=== PATIENT | male | born 1990 | race Caucasian/White ===

== ENCOUNTER 2024-05-18 03:50 | Emergency (ER) | payer SELFPAY ==
[~2024-05-18] VITALS: Ht 175.3 cm; Wt 99.8 kg
[2024-05-18 03:53] VITALS: BP 128/77; PULSE 66; RESP 16; TEMP 98.1; O2SAT 98
[2024-05-18 04:08] VITALS: TEMP 98.1
[2024-05-18 04:43] VITALS: BP 139/86; PULSE 79; RESP 16; O2SAT 99
== END 2024-05-18 04:51 ==
LOC: MED 03:50
DX: R06.02 Shortness of breath (principal)
CPT/HCPCS: 99285